=== PATIENT | male | born 1985 | race Caucasian/White ===

== ENCOUNTER 2025-11-02 08:10 | Emergency (ER) | payer OTHER, SELFPAY ==
--- NOTE | 2025-11-02 08:14 | ED.URI ---
HPI - URI/Sore Throat General Chief Complaint: Upper Respiratory Infection Stated Complaint: fever/chills Time Seen by Provider: 11/02/25 08:23 Source: patient and RN notes reviewed Mode of arrival: ambulatory Limitations: no limitations History of Present Illness HPI Narrative: 40-year-old male presents to the [facility] with complaints of low-grade fever and chills that started this morning. Started not feeling well low bit last night, took some Sudafed Last night. No treatment today. Related Data Home Medications ?Medication ?Instructions ?Recorded ?Confirmed ?Last Taken ?Type amlodipine 10 mg tablet mg 11/02/25 Unknown History losartan 100 mg tablet mg 11/02/25 Unknown History tirzepatide (weight loss) 2.5 mg subcut 11/02/25 Unknown History mg/0.5 mL subcutaneous pen injector (Zepbound) tirzepatide (weight loss) 5 mg/0.5 mg subcut 11/02/25 Unknown History mL subcutaneous pen injector (Zepbound) Allergies Allergy/AdvReac Type Severity Reaction Status Date / Time Penicillins Allergy Intermediate Rash Verified 11/02/25 08:27 Review of Systems Review of Systems: All systems reviewed & are unremarkable except as noted in HPI and below Constitutional: Constitutional: Reports as per HPI, Reports chills and Reports fever(s) ENT: Reports system reviewed and no additional complaints, except as documented Cardiovascular: Cardiovascular: Reports no additional cardiovascular complaints, Denies chest pain and Denies dyspnea Respiratory: Respiratory: Reports no additional respiratory complaints, Denies chest congestion, Denies cough and Denies dyspnea Musculoskeletal: Musculoskeletal: Reports no additional musculoskeletal complaints Integumentary/Breasts: Skin/Breast: Reports system reviewed and no additional complaints, except as docu PMFSH Comments At the time of my signature, I reviewed and agree with the nursing past medical, surgical, social, and family history. There is no relevant family history pertinent to the patient complaint. Exam Const: General: cooperative, no acute distress, well developed, alert, tired appearing, uncomfortable and well nourished Nutritional Appearance: well nourished and obese Orientation/consciousness: patient oriented x3 Limitations: no limitations HENMT: Head: normal to inspection Ears: hearing grossly normal bilaterally, external ears normal, TM's normal bilaterally, EAC's normal, mastoids normal and no periauricular adenopathy Face/Nose/Sinus: Normal external nose present Face and sinus: normal facial exam, sinuses nontender and face symmetric Mouth: Yes Normal oral and palatal mucosa present, Yes lip normal, Yes tongue normal and Yes moist mucous membranes Throat: posterior oropharynx normal, uvula midline and no uvular edema Eyes: General: appearance normal, both eyes and all related structures Alignment and Position: alignment normal Neck: Neck: normal visual inspection, full ROM, no lymphadenopathy and no meningeal signs Chest: Chest palpation & inspection: normal inspection of the chest Resp: Effort & Inspection: normal respiratory effort and able to speak in complete sentences Auscultation: clear to auscultation bilaterally, no crackles, no rales, no rhonchi and no wheezes Cardio: Rate: regular rate Skin: General skin exam: normal color and no rashes or lesions noted Neuro: General: patient oriented x3, gait normal, moves all extremities and no meningeal signs Cognition (Neuro): normal cognition Speech: normal speech Gait exam (Neuro): Normal gait present Extrem: General: normal to inspection, full ROM, capillary refill normal and normal gait Psych: Appearance: grossly normal and well kempt Mental Status: mental status grossly normal Speech and movement: Normal speech and movement present and Clear speech present Affect: normal affect Attitude: cooperative Course Course Level of Care: Express Care Visit Vital Signs Vital signs: Vital Signs Temperature 99.6 F 11/02/25 08:21 Pulse Rate 94 11/02/25 08:21 Respiratory Rate 20 11/02/25 08:21 Blood Pressure 194/97 H 11/02/25 08:21 Pulse Oximetry 98 11/02/25 08:21 Oxygen Delivery Room Air 11/02/25 08:21 Temperature 99.6 F 11/02/25 08:21 Pulse Rate 93 11/02/25 08:38 Respiratory Rate 20 11/02/25 08:21 Blood Pressure 183/95 H 11/02/25 08:38 Pulse Oximetry 98 11/02/25 08:21 Oxygen Delivery Room Air 11/02/25 08:21 reviewed MDM MDM Narrative Medical decision making narrative: patient sitting in exam room. Patient is nontoxic, appears uncomfortable. Patient with elevated blood pressure. Patient is COVID positive patient is appropriate for outpatient treatment with close follow-up with strict signs and symptoms to proceed to the emergency room. Discharge instructions reviewed with patient, as well as provided in writing per nursing staff. The instructions also include specific and strict return/GO TO THE ER as well as f/u information. All questions have been answered, and the patient deny any further questions with discharge and discharge plan. Some parts of this dictation were generated by voice recognition software and may contain typographical and/or grammatical inaccuracies. Differential Diagnosis Differential Diagnosis: Differential diagnostic considerations for upper respiratory infection include upper respiratory infection, croup, otitis media, sinusitis, viral infection, bronchitis, influenza, pharyngitis, strep, uvulitis.? Lab Data [facility] Lab Attestation statement: I personally reviewed the patient's lab results. Labs: Lab Results 11/02/25 Range/Units 08:33 POC Influenza A Ag Negative (Negative) POC Influenza B Ag Negative (Negative) POC SARS CoV-2 Ag Positive (Negative) Reviewed Discharge Plan Discharge Clinical Impression: COVID-19 Patient Disposition: Home Condition: Stable Instructions: COVID-19 (Coronavirus Disease 2019) (ED), COVID-19: Slow the Coronavirus Spread (ED) Additional Instructions: Today your blood pressure was 194/97. Is important to follow-up with primary care provider within the next week to have this rechecked. when taking cold medicine please make sure that it is safe with people with high blood pressure. Sudafed is not a good choice of medication when you have high blood pressure. Your rapid COVID test Was positive for COVID-19. It is important that you wear mask for the next 10 days around other people. Your rapid flu test was negative Your symptoms are due to a viral illness, which is not treated with antibiotics. Typically viral infections last 7-10 days, can linger for couple of weeks. It is very important to treat your symptoms. Drink plenty of water, Gatorade, Pedialyte, ice pops or Jell-O. -Alternate Tylenol and Motrin per package directions for fever or pain. You can alternate every 4 hours -Antihistamine medication such as Zyrtec/Claritin/Alison during the day can help improve symptoms. -doing daily nasal irrigations can help relieve pressure your sinuses. Things like a Neti pot -Use Flonase twice a day for 5 days then daily to help reduce the inflammation and dry up your sinuses. -You can also use Coricidin HBP orMucinex. Be sure to drink plenty of water with this medication at least 8 ounces with every dose and it is important to drink 8 to 10 glasses of water per day. Water is a natural decongestant -Eat and drink things that are easy to swallow, like tea or soup, or popsicles. -Oral rinses such as: Salt water gargles and/or may use topical anesthetic (eg. Chloraseptic spray) or lozenges to relieve dryness or throat pain). -Frequent hand washing or hand gasoline service attendant is one of the best ways to prevent spread of infection. -Using a vaporizer or humidifier at night will also help thin secretions and help with coughing up phlegm. -Follow up with primary care provider in 7-10 days if condition is not improving - For new or worsening symptoms go directly to the nearest ER Patient Language: Indonesian Prescriptions: No Action amlodipine 10 mg tablet losartan 100 mg tablet Zepbound 2.5 mg/0.5 mL pen injector SUBCUT Zepbound 5 mg/0.5 mL pen injector SUBCUT Follow-up/Referrals: PHYSICIAN NOT ON STAFF,NONSTAFF [Primary Care Provider] Stand Alone Forms: Work/School Release IP Time of Disposition: 08:30
--- OUTSIDE RECORDS SUMMARY | 2025-11-02 08:15 | XMS_ITS | Clinical Summary ---
Author Organization [facility] Address [address] [place] [address] Phone Care Team Providers Care Patients Transporter Name Role Phone Savana Benedict APRN, ACTIVITY AIDE Primary Care P rovider Jaja Gamez APRN, ACTIVITY AIDE Unavailable Radha Burns APRN, ACTIVITY AIDE Unavailable Allergies Active Allergy Reactions Criticality Noted Date Comments Lisinopril Other (see Comments) 07/04/2020 Penicillin G Rash 12/16/2014 Medications losartan (COZAAR) 100 MG TabletIndications: Benign essential hypertension Take 1 tablet by mouth once daily 90 Tablet 01/12/20 25 Active diphenoxylate-atro pine (LOMOTIL) 2.5-0.025 MG TabletIndications: Diarrhea, unspecified type Take 1 Tablet by mouth 4 times daily as needed for Diarrhea. 90 Tablet 06/29/20 25 Active latanoprost (XALATAN) 0.005 % Solution Place 1 Drop in both eyes nightly. 09/01/20 25 Active Tirzepatide-Weight Management (Zepbound) 5 MG/0.5ML Solution Auto-injectorIndic ations:Obstructive Sleep Apnea Syndrome 5 mg by Subcutaneous route once a week. Indications: Obstructive Sleep Apnea Syndrome 2 mL 1 11/01/20 25 Active amLODIPine (NORVASC) 10 MG TabletIndications: Benign essential hypertension Take 1 Tablet by mouth daily. 90 Tablet 3 12/31/19 24 025 Discontin ued(Med List Clean Up) Cyanocobalamin (VITAMIN B 12 PO) Take by mouth. 11/05 025 Discontin ued(Med List Clean Up) omeprazole (PriLOSEC) 40 MG CAPSULE DELAYED RELEASE TAKE 1 CAPSULE BY MOUTH IN THE MORNING AND AT BEDTIME 60 Capsule 06/01/20 24 025 Discontin ued(Med List Clean Up) fluticasone (FLONASE) 50 MCG/ACT SuspensionIndicati ons:Chronic maxillary sinusitis 1 [place] by Nasal route in the morning and at bedtime. Use in each nostril as directed. 16 g 06/11/20 24 025 Discontin ued(Med List Clean Up) metoprolol Succinate (TOPROL-XL) 100 MG TABLET SR 24 HRIndications:Hype rtension Take 1.5 Tablets by mouth nightly. Indications: High Blood Pressure Disorder 135 Tablet 1 06/11/20 24 025 Discontin ued(Med List Clean Up) famotidine (PEPCID) 20 MG TabletIndications: Gastroesophageal reflux disease, unspecified whether esophagitis present Take 1 Tablet by mouth 2 times daily. 180 Tablet 3 06/12/20 24 025 Discontin ued(Med List Clean Up) Vitamin D3 1.25 MG (41826 UT) CapsuleIndications :Vitamin D deficiency Take 1 capsule by mouth once a week 12 Capsule 1 06/25/20 24 025 Discontin ued(Med List Clean Up) hydroCHLOROthiazid e 25 MG TabletIndications: Benign essential hypertension Take 1 tablet by mouth once daily 90 Tablet 01/12/20 25 025 Discontin ued(Med List Clean Up) ondansetron (ZOFRAN-ODT) 4 MG TABLET DISPERSIBLEIndicat ions:Nausea and vomiting, unspecified vomiting type,Viral gastroenteritis Take 1 Tablet by mouth every 8 hours as needed for Nausea - 1st line. 30 Tablet 01/28/20 25 025 Discontin ued(Med List Clean Up) EQ Allergy Relief, Cetirizine, 10 MG TabletIndications: Chronic maxillary sinusitis Take 1 tablet by mouth once daily 90 Tablet 03/12/20 25 025 Discontin ued(Med List Clean Up) tirzepatide-weight management (Zepbound) 2.5 MG/0.5ML Solution Auto-injectorIndic ations:Obstructive Sleep Apnea Syndrome 2.5 mg by Subcutaneous route once a week. Indications: Obstructive Sleep Apnea Syndrome 2 mL 1 10/04/20 25 025 Discontin ued(Dose adjustmen t) Active Problems Problem Noted Date Diagnosed Date Class 3 severe obesity due t o excess calories without serious comorbidity with body mass index (BMI) of 45.0 to 49.9 in adult 01/28/2024 Hiatal hernia 01/16/2024 Overview (01/16/2024): Esophageal stricture 01/16/2024 Benign essential hypertension 06/20/2022 Hyperlipidemia 06/20/2022 Obstructive sleep apnea syndrome 06/20/2022 Overview (01/23/2024): Wears CPAP Gastroesophageal reflux disease 06/20/2022 Encounters Date Type Department Care Team Description 2025 Telephone [facility] Pulmonology & Sleep Medicine [facility] [address] [place] [address] Radha Burns APRN, ZOYA Prior Authorization (Zepbound) 10/04/2025 9:30 AM HOME HEALTH CLINICAL SUPERVISOR Office Visit [facility] Pulmonology & Sleep Medicine [facility] [address] [place] [address] Radha uBrns APRN, ZOYA Obstructive sleep apnea syndrome (Primary Dx); Class 3 severe obesity due to excess calories without serious comorbidity with body mass index (BMI) of 45.0 to 49.9 in adult Discharge Disposition: Discharged to home or Selfcare 10/03/2025 Travel from Last 3 Months Immunizations Immunization Administration Dates Next Due Anthrax Vaccine 03/28/2009,10/06/2008,08/12/2008 DTP Vaccine 06/06/1992, 8,03/15/1987,01/11,1986 Hepatitis A Vaccine 05/12/2008,07/10/2005 Hepatitis B Vaccine 07/10/2005, 4,05/24/2004,04/12 Inactivated Polio Vaccine 07/24/2004,04/12/2004 Influenza Vaccine 07/24/2004,04/12/2004 Influenza Vaccine Nasal 08/12/2008 Influenza Vaccine, Quadrivalent, PF 08/07/2022,0 01/09/2020,01/21/2018 MMR Vaccine 04/12/2004,06/06/1992,03/13/1988 Meningococcal Polysaccharide Vaccine (MPSV4) 07/24/2004,04/12/2004 OPV 06/06/1992, 8,03/15/1987,01/11,1986 Smallpox Vaccine 08/12/2008 TD VACCINE 07/24/2004,04/12/2004 TDAP Vaccine 01/31/2017 Typhoid Vaccine, Unspecified Formulation 05/12/2008 Family History Medical History Relation Name Comments Diabetes Father Mark Hypertension Father Mark Diabetes Maternal Grandfather glo Hypertension Maternal Grandfather glo Diabetes Mother Shaista Cancer Paternal Aunt x2 lung Cancer Paternal Grandmother rayma Relation Name Status Comments Father Mark Alive Maternal Grandfather glo Mother Shaista Alive Paternal Aunt x2 Paternal Grandmother rayma Social History Tobacco Use Types Packs/Day Years Used Date Smoking Tobacco: Never Smokeless Tobacco: Never Tobacco Cessation:Counseling Given: Not Answered Alcohol Use Standard Drinks/Week Comments Yes 2 (1 standard drink = 0.6 oz pur e alcohol) less than 1 a week [facility] Utilities Answer Date Recorded In the past 12 months has [employer], [employer], oil, or water [employer] threatened to shut off services in your home? No 01/27/2025 Social Connection and Isolation Panel Answer Date Recorded In a typical week, how many times do you talk on the phone with family, friends, or neighbors? Once a week 01/27/2025 How often do you get togethe r with friends or relatives? Never 01/27/2025 How often do you attend [facility] or confucianism services? More than 4 times per year 01/27/2025 Do you belong to any clubs o r organizations such as hindu groups, unions, fraternal or athletic groups, or school groups? No 01/27/2025 How often do you attend meet ings of the clubs or organizations you belong to? Never 01/27/2025 Are you , , di vorced, , never , or living with a partner? 01/27/2025 AUDIT-C Answer Date Recorded Q1: How often do you have a drink containing alc ohol? Monthly or less 01/27/2025 Q2: How many drinks containi ng alcohol do you have on a typical day when you are drinking? 1 or 2 01/27/2025 Q3: How often do you have si x or more drinks on one occasion? Never 01/27/2025 Overall Financial Resource Strain (CARDIA) Answe r Date Recorded How hard is it for you to pa y for the very basics like food, housing, medical care, and heating? Not hard at all 01/27/2025 PHQ-2 Answer Date Recorded Total Score - Questions 1-9 16 06/2024 [facility] - Occupational Stress Questionnaire Answer Date Recorded Do you feel stress - tense, restless, nervous, or anxious, or unable to sleep at night because your mind is troubled all the time - these days? Only a little 01/27/2025 Exercise Vital Sign Answer Date Recorde d On average, how many days pe r week do you engage in moderate to strenuous exercise (like a brisk walk)? 2 days 01/27/2025 On average, how many minutes do you engage in exercise at this level? 40 min 01/27/2025 Hunger Vital Sign Answer Date Recorded Within the past 12 months, y ou worried that your food would run out before you got the money to buy more. Never true 01/28/20 25 Within the past 12 months, t he food you bought just didn't last and you didn't have money to get more. Never true 01/27/2025 PRAPARE - Transportation Answer Date Re corded In the past 12 months, has l ack of transportation kept you from medical appointments or from getting medications? No 01/03 In the past 12 months, has l ack of transportation kept you from meetings, work, or from getting things needed for daily living? No 01/27/2025 Housing Stability Vital Sign Answer Carlos Alberto e Recorded In the last 12 months, was t here a time when you were not able to pay the mortgage or rent on time? No 01/27/2025 In the past 12 months, how m any times have you moved where you were living? 0 01/27/2025 At any time in the past 12 m [facility], were you homeless or living in a [place] facility (including now)? No 01/27/2025 Sexually Active Control Partners Comments Yes Natural Family Planning Female Sex and Gender Information Value Date Recorded Sex Assigned at Male 03/30/2024 3:13 AM CDT Legal Sex Male 9:29 AM CDT Gender Identity Male 03/30/2024 3:13 AM CDT Sexual Orientation Straight 03/30/2024 3: 13 AM CDT Last Filed Vital Signs Vital Sign Reading Time Taken Comments Blood Pressure 146/80 10/04/2025 9:32 AM HOME HEALTH CLINICAL SUPERVISOR Pulse 71 10/04/2025 9:32 AM HOME HEALTH CLINICAL SUPERVISOR Temperature 36.7 C (98.1 F) 10/04/2025 9:32 AM HOME HEALTH CLINICAL SUPERVISOR Respiratory Rate 20 10/04/2025 9:32 AM HOME HEALTH CLINICAL SUPERVISOR Oxygen Saturation 95% 10/04/2025 9:32 AM HOME HEALTH CLINICAL SUPERVISOR Inhaled Oxygen Concentration - - Weight 165.2 kg (364 lb 1.6 oz) 10/04/2025 9:32 AM HOME HEALTH CLINICAL SUPERVISOR Height 188 cm (6' 2) 10/04/2025 9:32 AM HOME HEALTH CLINICAL SUPERVISOR Body Mass Index 46.75 10/04/2025 9:32 AM HOME HEALTH CLINICAL SUPERVISOR Plan of Treatment Upcoming Encounters Date Type Department Care Team (Late st Contact Info) Description 11/11/2025 8:15 AM HOME HEALTH CLINICAL SUPERVISOR Office Visit [facility] - Primary Care - [place] [address] [place] [phone] Savana Benedict APRN, ACTIVITY AIDE [address] [place] [id number] 04/04/2026 8:30 AM CDT Office Visit [facility] - Pulmonology & Sleep Medicine - [place] [address] [place] [id number] Radha Burns APRN, ACTIVITY AIDE [address] [address] Health Maintenance Due Date Last Done Comments Varicella Immunization (1 of 2 - 13+ 2-dose series) 1999 Influenza Immunization (#1) 2025 10/0 02/2022, 01/09/2020, 01/21/2018, Additional history exists SARS-COV-2 Immunization (3 - 2024- season) 2025 06/29/2021, 05/26/2021 DTaP/Tdap/Td Immunization (7 - Td or Tdap) 01/31/2027 01/31/2017, 07/24/2004, 04/12/2004, Additional history exists Td Immunization Every 10 Years (Adults With 1 Tdap) 01/31/2027 01/31/2017, 07/24/2004, 04/12/2004 Respiratory Syncytial Virus (RSV) Immunization (Adult) (1 - 1-dose 75+ series) 2061 Meningococcal Immunization (ACWY) Aged Out 07/24/2004, 04/12/2004 No longer eligibl e based on patient's age to complete this topic Hepatitis B Immunization Completed 005, 07/24/2004, 05/24/2004, Additional history exists Hepatitis C Virus (HCV) Screening Completed 01/03/2024 Human Papillomavirus (HPV) Immunization (No Doses Required) Completed Pneumococcal Immunization Combined Aged Out No longer eligible based on patient's age to complete this topic Rotavirus Immunization Aged Out No lo nger eligible based on patient's age to complete this topic Procedures Procedure Name Priority Date/Time Associated Diagnosis Comments HEPATITIS C ANTIBODY Routine 01/03/2024 8:21 AM HOME HEALTH CLINICAL SUPERVISOR Preventative health care (Adult) from Last 3 Months or Most Recently Relevant to Health Maintenance Results * HEPATITIS C ANTIBODY (01/03/2024 8:21 AM HOME HEALTH CLINICAL SUPERVISOR) hepatitis C antibody 0.10 <1 S/CO [facility] ARCH [id number] B 01/03/2024 9:47 PM HOME HEALTH CLINICAL SUPERVISOR [facility] Comment: Signal/Cutoff ratio < 0.79 is Nondetected Signal/Cutoff ratio 0.80-0.99 is Grayzone Signal/Cutoff ratio > 0.99 is Detected Supplemental assays are recommended if signal/cutoff ratio is >/=1.00. Signal/cutoff ratio result >/= 5.00 is 97% predictive of positivity for recombinant immunoblot assay (RIBA) and will be reported to the [place] [facility] Public [facility] as required. Blood Venipuncture / Unknown 01/03/2024 8:21 AM HOME HEALTH CLINICAL SUPERVISOR 01/03/2024 8:21 AM HOME HEALTH CLINICAL SUPERVISOR us Savana Benedict APRN, CNP CHEMISTRY ORDER CACHORRO Final Result [facility] [address] [place] [address], [place] from Last 3 Months or Most Recently Relevant to Health Maintenance Insurance [facility] Care Teams Patients Transporter Relationship Specialty Start Date End Date Savana Benedict APRN, ACTIVITY AIDE [address] [place] [address] PCP - General Advanced Practice Nurse 06/20/22 Jaja Gamez APRN, ACTIVITY AIDE [address] [place] [address] Nurse Practitioner Advanced Practice Nurse 01/06/24 Radha Burns APRN, ACTIVITY AIDE [address] [address] Nurse Practitioner Advanced Practice Nurse 01/28/24
--- OUTSIDE RECORDS SUMMARY | 2025-11-02 08:15 | XMS_ITS | Clinical Summary ---
Author Organization [facility] Address [address] [place] [address] Care Team Providers Care Seal Mixer Name Role Phone Savana Benedict NP Primary Care Provide r Allergies Active Allergy Reactions Criticality Noted Date Comments Lisinopril Cough Low 06/23/2022 Penicillins Rash Medium 06/19/2022 Medications metoprolol XL (TOPROL-XL) 25 mg extended release tablet Take 1 tablet (25 mg total) by mouth nightly 10/22/2022 Active losartan (COZAAR) 100 mg tablet Take 1 tablet (100 mg total) by mouth daily Active Active Problems No known active problems Surgical History Surgery Date Site/Laterality Comments NOSE SURGERY Medical History Medical History Date Comments Hypertension Obesity Social History Tobacco Use Types Packs/Day Years Used Date Smoking Tobacco: Never Smokeless Tobacco: Never Personal Safety Answer Date Recorded Have you ever been in or are you currently in a harmful physical or emotional relationship or is someone making you feel afraid or unsafe? Denies 04/18/2023 Sex and Gender Information Value Date Recorded Sex Assigned at Not on file Legal Sex Male 6:41 AM CDT Gender Identity Not on file Sexual Orientation Not on file Last Filed Vital Signs Vital Sign Reading Time Taken Comments Blood Pressure 168/91 04/18/2023 11:40 PM CDT Pulse 72 04/18/2023 11:40 PM CDT Temperature 36.3 C (97.4 F) 04/18/2023 9:00 PM CDT Respiratory Rate 14 04/18/2023 11:40 PM CDT Oxygen Saturation 91% 04/18/2023 11:40 PM CDT Inhaled Oxygen Concentration - - Weight 156.5 kg (345 lb) 04/18/2023 9:00 PM CDT Height 188 cm (6' 2) 04/18/2023 9:00 PM CDT Body Mass Index 44.3 04/18/2023 9:00 PM CDT Plan of Treatment Health Maintenance Due Date Last Done Comments Depression Screening 1986 Hepatitis C Screening 1986 Varicella Vaccines (1 of 2 - 13+ 2-dose series) 1999 Regular Well Visit/Exam 18-64 2004 HPV Vaccines (1 - 3-dose SCDM series) 2013 Covid-19 Vaccine (3 - 2024- season) 2025 06/29/2021, 05/26/2021 Influenza Vaccine (#1) 2025 , 01/09/2020, 01/21/2018, Additional history exists DTaP/Tdap/Td Vaccine (7 - Td or Tdap) 01/31/2027 01/31/2017, 07/24/2004, 04/12/2004, Additional history exists Hepatitis B Screening Completed 07/10/2005 , 07/24/2004, 05/24/2004, Additional history exists Pneumococcal vaccine <65 Aged Out No longer eligible based on patient's age to complete this topic Insurance [facility] [place] [address] [facility] [employer] [employer] COMPENSATION GENERIC WORKERS COMPENSATION GENERIC Care Teams Seal Mixer Relationship Specialty Start Date End Date Savana Benedict NP [address] [place] [address] PCP - General Emergency Medicine 07/08/24
--- OUTSIDE RECORDS SUMMARY | 2025-11-02 08:15 | XMS_ITS | Encounter Summary ---
Author Organization [facility] Address [address] [place] [address] Phone Care Team Providers Care Sanitation Truck Driver Name Role Phone Savana Benedict APRN, SEISMIC PROSPECTING OBSERVER Primary Care P rovider Jaja Gamez APRN, SEISMIC PROSPECTING OBSERVER Unavailable Denzel Schulz MD Unavailable [phone] Radha Burns TEARER PRESS CLIPPING, SEISMIC PROSPECTING OBSERVER Unavailable Eleanor Candelario TEARER PRESS CLIPPING, SEISMIC PROSPECTING OBSERVER Unavailable [phone] Reason for Visit * Reason Comments Medication Refill Encounter Details Date Type Department Care Team (Late st Contact Info) Description 04/05/2024 Refill [facility] - Gastroenterology [facility] [address] [place] [id number] Denzel Schulz MD [address] [place] [address] Medication Refill Social History Tobacco Use Types Packs/Day Years Used Date Smoking Tobacco: Never Smokeless Tobacco: Never Alcohol Use Standard Drinks/Week Comments Yes 0 (1 standard drink = 0.6 oz pur e alcohol) rare Sexually Active Control Partners Comments Not Currently Sex and Gender Information Value Date Recorded Sex Assigned at Male 03/30/2024 3:13 AM CDT Legal Sex Male 9:29 AM CDT Gender Identity Male 03/30/2024 3:13 AM CDT Sexual Orientation Straight 03/30/2024 3: 13 AM CDT documented as of this encounter Miscellaneous Notes * Telephone Encounter - Monse Villa RN - 04/06/2024 9:18 AM CDT Medication failed the protocol, provider to review and approve the medication order if appropriate. Requested Prescriptions Pending Prescriptions Disp Refills omeprazole (PriLOSEC) 40 MG CAPSULE DELAYED RELEASE [Pharmacy Med Name: Omeprazole 40 MG Oral Capsule Delayed Release] 60 Capsule 0 Sig: TAKE 1 CAPSULE BY MOUTH IN THE MORNING AND AT BEDTIME Proton Pump Inhibitors Protocol Failed - 04/05/2024 7:55 AM Failed - Visit with relevant provider in past 12 months or upcoming 90 days Recent Visits Date Type Provider Dept 02/25/24 Office Visit Savana Benedict APRN, SEISMIC PROSPECTING OBSERVER [facility] 01/23/24 Office Visit Pauline Carrasco, ASHLEY [facility] 12/31/23 Office Visit Savana Benedict APRN, ZOYA [facility] 04/29/23 Office Visit Savana Benedict APRN, ZOYA [facility] 04/22/23 Office Visit Pauline Carrasco, PAC [facility] Showing recent visits within past 365 days and meeting all other requirements Future Appointments No visits were found meeting these conditions. Showing future appointments within next 90 days and meeting all other requirements documented in this encounter Plan of Treatment Upcoming Encounters Date Type Department Care Team (Late st Contact Info) Description 11/11/2025 8:15 AM BUSINESS LAWYER Office Visit [facility] - Primary Care - [place] [address] [place] [address] Savana Benedict APRN, SEISMIC PROSPECTING OBSERVER [address] [place] [address] 04/04/2026 8:30 AM CDT [facility] Pulmon[facility] & [facility] Medicine [facility] [address] [place] [address] Radha Burns APRN, SEISMIC PROSPECTING OBSERVER [address] [address] documented as of this encounter Visit Diagnoses Not on filedocumented in this encounter Additional Health Concerns Infection Onset Date Last Indicated Resolved Time COVID - 19 07/03/2024 07/03/2024 07/03/2024 4:21 PM CDT COVID - 19 Confirmed 07/03/2024 07/03/2024 024 12:16 AM CDT COVID - 19 01/27/2025 01/27/2025 01/27/2025 3:11 PM CDT Respiratory Rule-Out 01/27/2025 01/27/2025 025 3:10 PM CDT C. difficile Rule-Out 06/29/2025 07/14/20252024 10:58 PM CDT C. difficile Rule-Out 07/14/2025 07/14/20252024 12:27 PM CDT documented as of this encounter Care Teams Sanitation Truck Driver Relationship Specialty Start Date End Date Savana Benedict APRN, SEISMIC PROSPECTING OBSERVER [address] [place] [address] PCP - General Advanced Practice Nurse 06/20/22 Jaja Gamez APRN, SEISMIC PROSPECTING OBSERVER [address] [place] [address] Nurse Practitioner Advanced Practice Nurse 01/06/24 Denzel Schulz MD [address] [place] [address] Consulting Physician Gastroenterology 01/16/24 01/21/25 Radha Burns APRN, SEISMIC PROSPECTING OBSERVER [address] [facility] [address] [place] [address] Nurse Practitioner Advanced Practice Nurse 01/28/24 Eleanor Candelario APRN, SEISMIC PROSPECTING OBSERVER [address] [facility], [address] [place] [address] Nurse Practitioner Advanced Practice Nurse 03/13/24 documented as of this encounter
--- OUTSIDE RECORDS SUMMARY | 2025-11-02 08:15 | XMS_ITS | Encounter Summary ---
Author Organization [facility] Address [address] [place] [address] Phone Care Team Providers Care Crystallizer Operator Name Role Phone Savana Benedict APRN, INSTRUCTION DEAN Primary Care P rovider Jaja Gamez APRN, INSTRUCTION DEAN Unavailable Denzel Schulz MD Unavailable Radha Burns APRN, INSTRUCTION DEAN Unavailable Eleanor Candelario APRN, INSTRUCTION DEAN Unavailable [phone] Reason for Visit * Reason Comments Medication Refill Encounter Details Date Type Department Care Team (Late st Contact Info) Description 05/01/2024 Refill [facility] - Gastroenterology [facility] [address] [place] [address] Jaja Gamez APRN, INSTRUCTION DEAN [address] [place] [address] Medication Refill Social History Tobacco Use Types [...] encounter Miscellaneous Notes * Telephone Encounter - Mee Cross RN - 05/01/2024 2:08 PM CDT Medication refilled and signed per [facility] chronic medication standing order for pediatric and adult patients. documented in this encounter Plan of Treatment Upcoming Encounters Date Type Department Care Team (Late st Contact Info) Description 11/11/2025 8:15 AM BULB ASSEMBLER Office Visit [facility] - Primary Care - [place] [address] [place] [address] Savana Benedict APRN, INSTRUCTION DEAN [address] [place] [address] 04/04/2026 8:30 AM CDT Office Visit [facility] - Pulmonology & Sleep Medicine - [place] [address] [place] [address] Radha Burns APRN, INSTRUCTION DEAN [address] [address] documented as of this encounter Visit Diagnoses [...] documented as of this encounter Care Teams Crystallizer Operator Relationship Specialty Start Date End Date Savana Benedict APRN, INSTRUCTION DEAN [address] [place] [address] PCP - General Advanced Practice Nurse 06/20/22 Jaja Gamez APRN, INSTRUCTION DEAN [address] [place] [address] Nurse Practitioner Advanced Practice Nurse 01/06/24 Denzel Schulz MD [address] [place] [address] Consulting Physician Gastroenterology 01/16/24 01/21/25 Radha Burns APRN, INSTRUCTION DEAN [address] [facility] [address] [place] [address] Nurse Practitioner Advanced Practice Nurse 01/28/24 Eleanor Candelario APRN, INSTRUCTION DEAN [address] [facility] [address] [place] [address] Nurse Practitioner Advanced Practice Nurse 03/13/24 documented as of this encounter
[2025-11-02 08:21] VITALS: BP 194/97; PULSE 94; RESP 20; TEMP 37.6; O2SAT 98
[2025-11-02 08:35] LABS: EDCOVIDSCREEN Positive (Negative); EDINFLUASCREEN Negative (Negative); EDINFLUBSCREEN Negative (Negative)
[2025-11-02 08:38] VITALS: BP 183/95; PULSE 93
== END 2025-11-02 08:38 | disposition home or self-care (01) ==
PROVIDERS: Emergency Provider Nurse Practitioner
DX: U07.1 COVID-19 (principal); Z79.899 Other long term (current) drug therapy
CPT/HCPCS: 87426; 87804; 99212; G0463